=== PATIENT | male | born 1955 | race Caucasian/White ===

== ENCOUNTER 2022-01-12 08:13 | Outpatient (CLI) | payer MEDICARE ==
--- NOTE | 2022-01-12 10:08 | Ultrasound Report ---
PROCEDURE: Aorta Screening INDICATIONS: EX SMOKER, HIP AND LOW BACK PAIN TECHNIQUE: Real time scanning was performed of the aorta and iliac arteries, with image documentatio n. COMPARISON: None FINDINGS: Aorta: Proximal aortic diameter measures 2.6 x 2.6 cm. Mid-aorta measures 2.0 x 2.0 cm. Distal aor tic diameter is 1.6 x 1.6 cm. Iliac arteries: Right common iliac artery measures 1.1 cm. Left common iliac artery measures 1.1 cm . IMPRESSION: Negative screening abdominal aortic ultrasound. No evidence of aortic aneurysm. Reviewed by: Louie Brandon MD on 01/12/2022 10:07 AM [facility] Approved by: Louie Brandon MD on 01/12/2022 10:07 AM PST Station ID: [id number]
--- NOTE | 2022-01-12 16:18 | XRAY Report ---
PROCEDURE: Hip w/Pelvis 2-3V LT INDICATIONS: EX SMOKER, HIP AND LOW BACK PAIN TECHNIQUE: AP pelvis with lateral view(s) of the left hip(s). COMPARISON: None. FINDINGS: Bones: No fractures or dislocations. Mild to moderate bilateral hip joint osteophytic changes are s een. No evidence of avascular necrosis of femoral head. Pelvic ring appears intact. No suspicious [place] lesions. Soft tissues: The visualized bowel gas pattern is normal. No suspicious soft tissue calcifications. 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 No hip fracture or dislocation. N o evidence of avascular necrosis. Reviewed by: Jaiden Harper MD on 01/12/2022 4:16 PM PST Approved by: Jaiden Harper MD on 01/12/2022 4:16 PM PST Station ID: [id number]
--- NOTE | 2022-01-12 16:26 | XRAY Report ---
PROCEDURE: Lumbar Spine 2 View INDICATIONS: EX SMOKER, HIP AND LOW BACK PAIN TECHNIQUE: 2 views of the lumbar spine were acquired. COMPARISON: None. FINDINGS: Bones: 5 [id number] vertebrae are present. There is normal bony alignment. Degenerative endpla te changes and loss of disc height with bilateral facet arthrosis at L3-4 through L5-S1 levels are se en. No vertebral body compression fractures. No suspicious bony lesions. Soft tissues: Overlying bowel gas pattern is normal. No suspicious soft tissue calcifications. 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 No acute compression fracture or spondylolisthesis. Reviewed by: Jaiden Harper MD on 01/12/2022 4:24 PM PST Approved by: Jaiden aHrper MD on 01/12/2022 4:24 PM PST Station ID: [id number]
== END 2022-01-12 08:14 | disposition home or self-care (01) ==
LOC: DI 08:13
PROVIDERS: ATTEND Nurse Practitioner Family
DX: Z13.6 Encounter for screening for cardiovascular disorders (principal); Z87.891 Personal history of nicotine dependence; M16.0 Bilateral primary osteoarthritis of hip; M47.816 Spondylosis without myelopathy or radiculopathy, lumbar region; M51.36 Other intervertebral disc degeneration, lumbar region; M47.817 Spondylosis without myelopathy or radiculopathy, lumbosacral region; M51.37 Other intervertebral disc degeneration, lumbosacral region